=== PATIENT | female | born 1985 | race Two or more races ===

== ENCOUNTER 2020-03-03 18:11 | Inpatient (IN) | payer OTHER ==
[~2020-03-03] VITALS: Ht 160 cm; Wt 86.6 kg
--- NOTE | 2020-03-03 18:38 | NUR ---
BIBS FROM HOME TO ER BED 7. AAOX4. NOT IN RESP DISTRESS. AMBULATORY. CAME IN FOR MID LOWER ABDOMINAL PAIN SHOOTING DOWN 10/10 SINCE THIS MORNING. PT IS ALSO COMPLAINING OF FRONTAL HEADACHE, STATES TAHT SHE FEELS PRESSURE WHEN BENDING FORWARD. PT IS NOTED WITH A FEVER OF 101.5. MD WAS AT THE BEDSIDE FOR EVAL. ORDERS RECEIVED NOTED AND CARRIED OUT. IV LINE ESTABLSHED ON L AC 20G, BLOOD DRAWN AND GIVEN TO OINTMENT MILL TENDER AT BEDSIDE. URINE COLLECTED AND SENT TO LAB.
[2020-03-03 18:41] LABS: BASOPHILS % (AUTO) 0.2 % (0.0-2.0); EOSINOPHILS % (AUTO) 0.6 % (0.0-6.0); HEMATOCRIT 43 % (33-45); LYMPHOCYTES # (AUTO) 2.7 /CMM (0.8-4.8); LYMPHOCYTES % (AUTO) 16.2 % (20.0-44.0); MEAN CORPUSCULAR HGB CONC 33 g/dl (31.0-36.0); MEAN CORPUSCULAR VOLUME 88 fL (82-100); NEUTROPHILS # (AUTO) 12.6 /CMM (1.8-8.9); PLATELET COUNT (AUTO) 349 /CMM (150-450); RED BLOOD CELL COUNT(AUTO) 4.93 MIL/uL (4.0-5.2); WHITE BLOOD COUNT (AUTO) 16.4 K/uL (4.3-11.0)
[2020-03-03 18:53] LABS: APPEARANCE,URINE Clear (CLEAR); BILIRUBIN,URINE Negative (NEGATIVE); BLOOD, URINE Trace-lysed Ery/uL (NEGATIVE); COLOR,URINE Yellow (YELLOW); KETONES,URINE 15 (NEGATIVE); LEUKOCYTE ESTERASE ,URINE Negative (NEGATIVE); NITRITE, URINE Negative (NEGATIVE); PROTEIN,URINE Negative (NEGATIVE); UGLUCOSE Negative (NEGATIVE); UROBILINOGEN,URINE 0.2 EU/dL (0.2)
[2020-03-03 18:54] LABS: BACTERIA,URINE Rare /HPF (None Seen); SQUAMOUS EPITHELIAL CELL,UR Few /HPF (None Seen); WBC,URINE NONE SEEN /HPF (0-3)
[2020-03-03 18:55] LABS: CALCIUM, SERUM 9.4 mg/dL (8.5-10.1); CREATININE 0.9 mg/dL (0.6-1.3); POTASSIUM 3.8 mmol/L (3.5-5.1)
--- NOTE | 2020-03-03 18:56 | NUR ---
US AT [facility]
[2020-03-03] MEDS ORDERED: ACETAMINOPHEN 325 MG TABLET PO ONE (19:00)
[2020-03-03] MEDS ORDERED: IV NS 0.9% 1,000 ML IV ONE ×2 (19:00→20:00)
[2020-03-03] MEDS ORDERED: MORPHINE SULFATE INJ 2 MG/ML DISP.SYRIN IV ONE (19:00)
[2020-03-03] MEDS ORDERED: ONDANSETRON HCL/PF - ER 4 MG/2 ML VIAL IV ONE (19:00)
[2020-03-03 19:09] LABS: ALBUMIN 4.1 g/dL (3.4-5.0); BILIRUBIN,DIRECT 0.1 mg/dL (0.0-0.2); BILIRUBIN,TOTAL 0.3 mg/dL (0.2-1.0); TOTAL PROTEIN, SERUM 9.5 g/dL (6.4-8.2)
[2020-03-03] MEDS ORDERED: ONDANSETRON HCL/PF 4 MG/2 ML VIAL ONE (19:32)
[2020-03-03] MEDS ORDERED: MORPHINE SULFATE INJ 2 MG/ML DISP.SYRIN ONE (19:32)
[2020-03-03] MEDS ORDERED: KETOROLAC TROMETHAMINE 15 MG/ML VIAL ONE (19:37)
[2020-03-03 19:50] LABS: ALANINE AMINOTRANSFERASE 29 U/L (12-78); ALBUMIN 4.1 g/dL (3.4-5.0); ALKALINE PHOSPHATASE 52 U/L (46-116); ASPARTATE AMINOTRANSFERASE 27 U/L (15-37); BILIRUBIN,DIRECT 0.1 mg/dL (0.0-0.2); BILIRUBIN,TOTAL 0.3 mg/dL (0.2-1.0); TOTAL PROTEIN, SERUM 9.5 g/dL (6.4-8.2)
[2020-03-03] MEDS ORDERED: KETOROLAC TROMETHAMINE INJ 30 MG/ML VIAL IV ONE (20:00)
[2020-03-03] MEDS ORDERED: PIPERACILLIN /TAZOBACTAM 3.375 G in IV D5W 50 ML IV ONE (20:30)
[2020-03-03] MEDS ORDERED: PIPERACILLIN /TAZOBACTAM 3.375 G VIAL IV ONE (21:22)
--- NOTE | 2020-03-03 22:16 | NUR ---
REPROT GIVEN TO ROSE MEDRANO FOR LIZZY
--- NOTE | 2020-03-03 22:24 | NUR ---
PT IS BEING TRANSPORTED TO UNIT ON WHEELCHAIR. PT IS IN STABLE CONDITION.
--- NOTE | 2020-03-03 22:27 | NUR ---
MS RN OPEN NOTES RECEIVED PT VIA WHEELCHAIR, WAS ABLE TO AMBULATE TO BED. A/O X4. STABLE ON RA, NO SOB/ ACUTE RESPIRATORY DISTRESS NOTED. IV IN L AC #20G IS PATENT AND INTACT. PT ORIENTED TO ROOM. BED IS IN LOWEST LOCKED POSITION WITH SIDE RAILS UP X2, SEMI FOWLERS. CALL LIGHT IS WITHIN REACH. WILL CONTINUE TO MONITOR. VITALS ON ADMISSION: BP 117/65 HR 73 O2 99% TEMP 98.4 RR 20
[2020-03-03 22:30] VITALS: BP 117/65
[2020-03-03] MEDS ORDERED: ACETAMINOPHEN 325 MG TABLET PO PRN (22:30)
[2020-03-03] MEDS ORDERED: KETOROLAC TROMETHAMINE INJ 30 MG/ML VIAL IM PRN (22:30)
[2020-03-03] MEDS ORDERED: MAGNESIUM HYDROXIDE 30 ML UDC PO PRN (22:30)
[2020-03-03] MEDS ORDERED: Z GUARD REMEDY 2 OZ OINT TP PRN (22:30)
[2020-03-03] MEDS ORDERED: MAG HYDROX/AL HYDROX/SIMETH 30 ML UDC PO PRN (22:30)
[2020-03-03] MEDS ORDERED: ONDANSETRON HCL/PF 4 MG/2 ML VIAL IVP PRN (22:30)
[2020-03-04] MEDS ORDERED: PIPERACILLIN /TAZOBACTAM 3.375 G in IV D5W 50 ML IV SCH ×2
[2020-03-04] MEDS ORDERED: IV PREMIX D5 1/2NS + KCL 1,000 ML IV ONE (01:05)
[2020-03-04] MEDS: Potassium Chloride 20 MEQ in IV D5/0.45 NACL 1,000 ML IV PRN ×2 (01:11→22:31)
--- NOTE | 2020-03-04 01:11 | NUR ---
MS RN NOTES UNABLE TO SCAN KCL. HAD TO CLICK "ADMINISTER" BECAUSE THE SYSTEM WAS NOT RECOGNIZING THE BARCODE.
[2020-03-04] MEDS ORDERED: PIPERACILLIN /TAZOBACTAM 3.375 G VIAL IV ONE (03:16)
[2020-03-04] MEDS ORDERED: ZOSYN IVPB 3.375 G in IV D5W 50ml IV ONE (03:30)
[2020-03-04 04:00] VITALS: BP 119/65
--- NOTE | 2020-03-04 06:20 | NUR ---
MS RN CLOSE NOTES PATIENT IS RESTING IN BED. A/O X4. ON RA, NO SOB/ ACUTE RESPIRATORY DISTRESS NOTED. IV IN L AC#20G IS PATENT AND INTACT RUNNING KCL @75MLS/HR. PATIENT KEPT NPO THROUGH THE NIGHT. APPEARS COMFORTABLE/ DENIES ANY PAIN AT THE MOMENT. PATIENT IS ABLE TO AMBULATE. BED IS IN LOWEST LOCKED POSITION WITH SIDE RAILS UP X2, SEMI FOWLERS. CALL LIGHT IS WITHIN REACH. WILL ENDORSE TO AM NURSE.
[2020-03-04 06:57] LABS: BASOPHILS % (AUTO) 0.3 % (0.0-2.0); EOSINOPHILS % (AUTO) 1.9 % (0.0-6.0); HEMATOCRIT 41 % (33-45); HEMOGLOBIN 12.9 g/dL (11.5-14.8); LYMPHOCYTES # (AUTO) 3.2 /CMM (0.8-4.8); LYMPHOCYTES % (AUTO) 26.7 % (20.0-44.0); MEAN CORPUSCULAR HGB CONC 32 g/dl (31.0-36.0); MEAN CORPUSCULAR VOLUME 89 fL (82-100); MONOCYTES # (AUTO) 1.3 /CMM (0.1-1.30); MONOCYTES % (AUTO) 11.2 % (2.0-12.0); NEUTROPHILS # (AUTO) 7.1 /CMM (1.8-8.9); NEUTROPHILS % (AUTO) 59.9 % (43.0-81.0); PLATELET COUNT (AUTO) 258 /CMM (150-450); RED BLOOD CELL COUNT(AUTO) 4.57 MIL/uL (4.0-5.2); WHITE BLOOD COUNT (AUTO) 11.9 K/uL (4.3-11.0)
--- NOTE | 2020-03-04 07:30 | NUR ---
RECEIVED PATIENT IN BED. NO ACUTE DISTRESS NOTED. ALERT & ORIENTED X4. PATIENT ON ROOM AIR, BREATHING EVEN AND UNLABORED, SATURATING WELL. PATIENT NPO STATUS OBSERVED. PATIENT LEFT ANTECUBITAL IV ACCESS INTACT, PATENT, FLUSHED WELL. PATIENT SAFETY MEASURES MAINTAINED. CALL LIGHT WITHIN REACH. WILL CONTINUE TO MONITOR CLOSELY.
[2020-03-04 07:35] LABS: CALCIUM, SERUM 8.2 mg/dL (8.5-10.1); CREATININE 0.9 mg/dL (0.6-1.3); MAGNESIUM 2.7 mg/dL (1.8-2.4); POTASSIUM 3.6 mmol/L (3.5-5.1)
[2020-03-04 07:44] LABS: THYROID STIMULATING HORMONE 3.165 uIU/mL (0.358-3.74)
[2020-03-04 08:00] VITALS: BP 118/68
[2020-03-04] MEDS: PANTOPRAZOLE 40 MG VIAL IV SCH (09:29)
[2020-03-04] MEDS: PIPERACILLIN /TAZOBACTAM 3.375 G in IV D5W 100 ML IV SCH ×2 (10:15→17:05)
--- NOTE | 2020-03-04 11:45 | NUR ---
PATIENT TAKEN TO OR FOR LAPAROSCOPIC APPENDECTOMY POSSIBLE OPEN. PATIENT IN STABLE CONDITION. CONSENTS SIGNED, CHECKLIST DONE, VITAL SIGNS TAKEN AND DOCUMENTED.
[2020-03-04] MEDS ORDERED: BUPIVACAINE MPF 0.5% W/EPI INJ 30 ML VIAL ONE (11:58)
[2020-03-04] MEDS ORDERED: LIDOCAINE 1% INJ 50 ML MDV IJ ONE (11:58)
[2020-03-04] MEDS ORDERED: MIDAZOLAM HCL 2 MG/2ML VIAL ONE (12:01)
[2020-03-04] MEDS ORDERED: FENTANYL PF 250MCG/5ML AMPUL ONE (12:01)
[2020-03-04] MEDS ORDERED: FAMOTIDINE/PF INJ 20 MG/2 ML VIAL IV ONE (12:02)
--- NOTE | 2020-03-04 14:11 | NUR ---
PATIENT RETURN FROM PACU. VS TEMPERATURE 97.8, HR 61, RESPIRATIONS 17, BP 101/56, 100% OXYGEN ON 2L OXYGEN VIA NASAL CANULA. NO ACUTE DISTRESS NOTED. PATIENT REPORTED NO PAIN, JUST "A LITTLE SLEEPY" PATIENT DVT PUMPS ON, INCENTIVE SPIROMETER AT BEDSIDE, HEAD OF BED ELEVATED PATIENT SAFETY MEASURES MAINTAINED. CALL LIGHT WITHIN REACH. WILL CONTINUE TO MONITOR.
[2020-03-04 16:00] VITALS: BP 103/52
--- NOTE | 2020-03-04 18:30 | NUR ---
PATIENT IN BED. NO ACUTE DISTRESS NOTED. ALERT & ORIENTED X4. PATIENT ON ROOM AIR, BREATHING EVEN AND UNLABORED, SATURATING WELL. PATIENT LEFT ANTECUBITAL IV ACCESS INTACT, PATENT, FLUSHED WELL. PATIENT SAFETY MEASURES MAINTAINED. CALL LIGHT WITHIN REACH. WILL ENDORSE PLAN OF CARE TO ONCOMING SHIFT FOR CONTINUITY OF CARE
--- NOTE | 2020-03-04 19:57 | NUR ---
MS RN OPENING NOTES RECEIVED PATIENT IN BED, AWAKE, CONSCIOUS, COOPERATIVE, A/O X4, BREATHING AT ROOM AIR, UNLABORED BREATHING, NO SIGNS OF RESPIRATORY DISTRESS, LAC #20G, KCL @ 75ML/HR ON HOLD, ANTIBIOTICS STILL ONGOING, NO COMPLAINTS OF PAIN, SIDE RAILS UP X 2, WILL CONTINUE TO MONITOR.
[2020-03-04 21:00] VITALS: BP 99/61
[2020-03-05] MEDS: PIPERACILLIN /TAZOBACTAM 3.375 G in IV D5W 100 ML IV SCH ×3 (01:16→17:00)
[2020-03-05 05:04] VITALS: BP 111/67
[2020-03-05 06:43] LABS: BASOPHILS % (AUTO) 0.1 % (0.0-2.0); EOSINOPHILS % (AUTO) 0.1 % (0.0-6.0); HEMATOCRIT 39 % (33-45); HEMOGLOBIN 12.4 g/dL (11.5-14.8); LYMPHOCYTES % (AUTO) 5.6 % (20.0-44.0); MEAN CORPUSCULAR HGB CONC 32 g/dl (31.0-36.0); MEAN CORPUSCULAR VOLUME 88 fL (82-100); MONOCYTES # (AUTO) 0.5 /CMM (0.1-1.30); MONOCYTES % (AUTO) 2.9 % (2.0-12.0); NEUTROPHILS # (AUTO) 16.2 /CMM (1.8-8.9); NEUTROPHILS % (AUTO) 91.3 % (43.0-81.0); PLATELET COUNT (AUTO) 309 /CMM (150-450); RED BLOOD CELL COUNT(AUTO) 4.44 MIL/uL (4.0-5.2); WHITE BLOOD COUNT (AUTO) 17.8 K/uL (4.3-11.0)
[2020-03-05 06:55] LABS: CALCIUM, SERUM 8.6 mg/dL (8.5-10.1); MAGNESIUM 2.3 mg/dL (1.8-2.4); PHOSPHORUS 2.8 mg/dL (2.5-4.9); POTASSIUM 3.8 mmol/L (3.5-5.1)
--- NOTE | 2020-03-05 07:01 | NUR ---
MS RN CLOSING NOTES ENDORSED PATIENT IN BED, AWAKE, A/O X4, BREATHING AT ROOM AIR, UNLABORED BREATHING, NO SIGNS OF RESPIRATORY DISTRESS, LAC #20G, KCL @ 75ML/HR INFUSING WELL, NO REDNESS OR INFILTRATION NOTED, NO SIGNS OF BLEEDING ON SURGICAL SITE, NO COMPLAINTS OF PAIN, SIDE RAILS UP X 2, ENCOURAGE PATIENT TO AMBULATE.
--- NOTE | 2020-03-05 07:28 | NUR ---
RN OPENING NOTE: Receievd patient in bed. Awake, alert and oriented x4. Able to make needs known. On room air and tolerating well. Saturation @ 98%. S/P appendectomy with surgical site stitches clean, dry, patent and intact. Minimal pain reported at the moment and patient prefers to not take pain medication at this moment. IV site clean, dry, patent and intact. IV infusion of D5 1/2/ NS @ 75mls/hr + 20meq KCL being tolerated well. Call light in reach. Bed locked, low and at semi-kern's position. Side rails up x3. Safety ensured and observed. Will continue to monitor.
[2020-03-05 08:00] VITALS: BP 103/65
[2020-03-05] MEDS: PANTOPRAZOLE 40 MG VIAL IV SCH (09:39)
[2020-03-05] MEDS ORDERED: SIMETHICONE 80 MG TAB.CHEW PO PRN (15:30)
[2020-03-05 16:00] VITALS: BP 108/65
[2020-03-05] MEDS: Potassium Chloride 20 MEQ in IV D5/0.45 NACL 1,000 ML IV PRN (18:11)
--- NOTE | 2020-03-05 19:30 | NUR ---
PARAM/RN OPENING NOTES RECEIVED PATIENT RESTING IN BED. PATIENT IS ALERT AND ORIENTED X 4. NO SIGNS OF RESPIRATORY DISTRESS NOTED. PATIENT HAS IV ACCESS ON LAC #20G RUNNING D5 1/2 NS + 20 MEQ KCL AT 75 ML/HR. PATIENT STATES NO PAIN AT THIS TIME. SAFETY MEASURES ARE IN PLACE, BED IS LOCKED AND PLACED IN THE LOW POSITION, SIDE RAILS UP X 2. CALL LIGHT IS WITHIN REACH. WILL CONTINUE TO MONITOR DURING SHIFT.
--- NOTE | 2020-03-05 19:35 | NUR ---
RN OPENING NOTE: Patient remains in bed. Awake, alert and oriented x4. Able to make needs known. On room air and tolerating well. Saturation @ 98%. S/P appendectomy with surgical site stitches clean, dry, patent and intact. Minimal pain reported at the moment and patient prefers to not take pain medication at this moment. IV site clean, dry, patent and intact. IV infusion of D5 1/2/ NS @ 75mls/hr + 20meq KCL being tolerated well. Seen by Jamie Hill DNP and Karis Miller DNP earlier on shift. Call light in reach. Bed locked, low and at semi-kern's position. Side rails up x3. Safety ensured and observed. Due medications given. Treatment given as ordered. Endorsed to oncoming shift for LIZZY. Addendum: 03/05/20 at 1937 by JOSSY CORREA RN RN CLOSING NOTE
[2020-03-05 19:55] VITALS: BP 124/65
[2020-03-05 21:00] VITALS: BP 124/65
[2020-03-06] MEDS: PIPERACILLIN /TAZOBACTAM 3.375 G in IV D5W 100 ML IV SCH ×2 (01:17→10:28)
--- NOTE | 2020-03-06 02:35 | NUR ---
MS/RN NOTES PATIENT WAS COMPLAINING OF PAIN AT ABD. INCISION SITE AND CHEST SORENESS. TORADOL 15 MG IM WAS GIVEN. V/S ARE STABLE, WILL CONTINUE TO MONITOR.
[2020-03-06 05:00] VITALS: BP 128/68
--- NOTE | 2020-03-06 06:45 | NUR ---
MS/RN CLOSING NOTES PATIENT SLEEPING IN BED EASY TO WAKE. PATIENT IS ALERT AND ORIENTED X 4. NO SIGNS OF RESPIRATORY DISTRESS OR SOB NOTED. PATIENT HAS IV ACCESS ON LAC #20G RUNNING D5 1/2 NS + 20 MEQ KCL AT 75 ML/HR. PATIENT STATES NO PAIN AT THIS TIME. PATIENTS STITCHES ARE CLEAN, DRY AND INTACT, NO SIGNS OF ACTIVE BLEEDING. ALL PATIENTS NEEDS HAVE BEEN MET DURING SHIFT. SAFETY MEASURES ARE IN PLACE, BED IS LOCKED AND PLACED IN THE LOW POSITION, SIDE RAILS UP X 2. CALL LIGHT IS WITHIN REACH. WILL ENDORSE CARE TO DAY SHIFT.
[2020-03-06 06:54] LABS: BASOPHILS % (AUTO) 0.2 % (0.0-2.0); EOSINOPHILS % (AUTO) 1.5 % (0.0-6.0); HEMATOCRIT 34 % (33-45); HEMOGLOBIN 11.1 g/dL (11.5-14.8); LYMPHOCYTES # (AUTO) 3.2 /CMM (0.8-4.8); LYMPHOCYTES % (AUTO) 31.4 % (20.0-44.0); MEAN CORPUSCULAR HGB CONC 33 g/dl (31.0-36.0); MEAN CORPUSCULAR VOLUME 88 fL (82-100); MONOCYTES # (AUTO) 0.8 /CMM (0.1-1.30); MONOCYTES % (AUTO) 8.2 % (2.0-12.0); NEUTROPHILS % (AUTO) 58.7 % (43.0-81.0); PLATELET COUNT (AUTO) 243 /CMM (150-450); RED BLOOD CELL COUNT(AUTO) 3.88 MIL/uL (4.0-5.2); WHITE BLOOD COUNT (AUTO) 10.2 K/uL (4.3-11.0)
[2020-03-06 07:09] LABS: CREATININE 0.9 mg/dL (0.6-1.3); MAGNESIUM 2.2 mg/dL (1.8-2.4); PHOSPHORUS 2.3 mg/dL (2.5-4.9); POTASSIUM 3.5 mmol/L (3.5-5.1)
[2020-03-06] MEDS ORDERED: PANTOPRAZOLE 40 MG TABLET.DR PO SCH (07:30)
--- NOTE | 2020-03-06 07:30 | NUR ---
Patient in bed, A/O x4, denies pain or discomfort, on room air, no sob or resp distress noted, O2 saturation is 98% at this time, laparoscopic incisions scars are noted no s/sx of infection noted, active bowel sounds in four quadrants, flatus present, no BM reported. Lungs are clear. IV line on L AC noted, intact and patent, skin is intact. Diet order is clear liquids, bed in lowest position, vall light in reach, HOB elevated, will cont to monitor
[2020-03-06 08:00] VITALS: BP 133/76
[2020-03-06] MEDS ORDERED: AMOX-430 PO (10:44)
[2020-03-06] MEDS ORDERED: NEUTRA PHOS 1 POWD.PACKET PO ONE (11:30)
[2020-03-06 13:00] VITALS: BP 133/76
--- NOTE | 2020-03-06 15:00 | NUR ---
Reported first BM after surgery
[2020-03-06 16:00] VITALS: BP 128/82
--- NOTE | 2020-03-06 18:30 | NUR ---
Patient picked up by family member, via car, patient is able to ambulate , IV line removed, ID bands removed, discharge instruction provided, patient is clean and safe went home. Follow up instructions provided
== END 2020-03-06 18:20 | disposition home or self-care (01) | DRG 341 ==
LOC: ER 18:17 → MEDSG1 22:10
PROVIDERS: ADMIT Registered Nurse; ATTEND Nurse Practitioner Acute Care
PROC: 0DTJ4ZZ Resection of Appendix, Percutaneous Endoscopic Approach (ICD-10-PCS; principal; 2020-03-04)
DX: K35.80 Unspecified acute appendicitis (principal); A41.9 Sepsis, unspecified organism; E66.01 Morbid (severe) obesity due to excess calories; Z68.33 Body mass index [BMI] 33.0-33.9, adult; K76.0 Fatty (change of) liver, not elsewhere classified
CPT/HCPCS: 36415; 71045-TC; 76705-TC; 80048-TC; 80061-TC; 80076-TC; 81000-TC; 83605-TC; 83690-TC; 83735-TC; 84100-TC; 84443-TC; 84484-TC; 84702-TC; 84703-TC; 85025-TC; 85730-TC; 87040-TC; 87081-TC; 87086-TC; C9113; C9803-CS; G0378; J0690; J1100; J1885; J2250; J2270; J2405; J2543; J2704; J2765; J3010; J3480; J3490; J7030; J7060